=== PATIENT | male | born 1950 | race Caucasian/White ===

== ENCOUNTER 2016-03-20 14:14 | Emergency (ER) | payer OTHER ==
[2016-03-20 14:52] VITALS: BP 155/85; PULSE 96; RESP 16; TEMP 97.7; O2SAT 91
--- NOTE | 2016-03-20 15:35 | DX ---
Left Shoulder, Three Views. History: Pain and swelling after lifting injury. Findings: Moderate degenerative change is seen in the acromioclavicular joint. There is an anterior c urve to the acromion and a subacromial spur. Humeral head is mildly high riding. Subcortical sclerosi s is seen at the greater tuberosity. No evidence for acute fracture or dislocation. Impression: Moderate degenerative change at the acromioclavicular joint. Anterior curve to the acromi on and a subacromial spur. Possible rotator cuff pathology and impingement.
--- NOTE | 2016-03-20 15:42 | UCPHY ---
H & P Patient Type: New Chief Complaint Nursing Narrative: last pm at work lifted heavy object and now since has had lots of pain and bump on left shoulder .CMS intact distal to injury . Time Seen by Provider: 03/20/16 15:18 HPI/ROS: Chief complaint: Left shoulder pain History of present illness: This is a 66-year-old male who presents to the clinic for evaluation of left shoulder pain. Patient states last night while at work he was lifting heavy objects when he developed pain in the left shoulder. The pain has been persistent. He has noticed a bump to the shoulder as well. Pain is worse with movement, better with rest. Denies other associated signs or symptoms including no history of direct trauma to the area. No open wounds. No paresthesias or abnormal coolness to the left arm. No rashes. No fevers. No discomfort in other parts of the body reported. - Medical/Surgical History Other PMH: PCP Stephen Jones/[facility]. Surgery : Ventral hernia Repair. Med : HTN Hypercholesterolemia. FLU Vacc NONE. Tetanus UTD - Family History Significant Family History: No pertinent family hx - Social History Smoking Status: Never smoked - Physical Exam Exam: General: Alert, nontoxic Skin: No lesions to the left shoulder noted. Musculoskeletal: Head is normocephalic, atraumatic. Spine is nontender to palpation along its entire length. There is tenderness diffusely to the left shoulder. There is point tenderness over the AC joint, there is bony deformity in this region. He has good range of motion in all gray left shoulder although it causes discomfort. The rest the left arm is unremarkable, is nontender, he is moving the left elbow, wrist and digits of the hand without difficulty. Vascular: Radial pulses 2+. Neurologic: Sensation intact throughout the left arm. Constitutional: Initial Vital Signs Temperature (C) 36.5 C 03/20/16 14:44 Heart Rate 96 03/20/16 14:44 Respiratory Rate 16 03/20/16 14:44 Blood Pressure 155/85 H 03/20/16 14:44 O2 Sat (%) 91 L 03/20/16 14:44 O2 Delivery Mode Room Air Allergies/Adverse Reactions: No Known Allergies Allergy (Unverified 03/20/16 14:52) Home Medications: Medication Instructions Recorded Cholesterol Med 03/20/16 [facility] 01/26/17 Medical Decision Making - Diagnostics Imaging: X-ray left shoulder shows degenerative changes of the AC joint, anterior curve of the acromion and an subacromial spur, possible rotator cuff pathology. See report for complete details. Procedures: Patient placed in a sling ED Course/Re-evaluation: Patient seen under the supervision of my secondary supervising physician Dr. Santiago Giang. Patient presents to the clinic for left shoulder pain after lifting a heavy object. The arm is neurovascularly intact. X-rays as described above. Patient is placed in a sling for comfort. Home care is discussed. He is asked to follow up with worker's compensation or an orthopedic doctor for continued evaluation and care. Strict return precautions are given. Patient voiced understanding and agreement with plan. Differential Diagnosis: Included but not limited to contusion, sprain or strain, fracture, joint dislocation Departure - Departure Disposition: Home, Routine, Self-Care Clinical Impression: Shoulder sprain Qualifiers: Encounter type: initial encounter Shoulder sprain type: unspecified sprain Laterality: left Qualifier Code: (S43.402A) Unspecified sprain of left shoulder joint, initial encounter Condition: Good Instructions: Shoulder Sprain (ED) Additional Instructions: Follow-up with worker's compensation doctor or orthopedics for recheck Wear sling for the next 2-3 days and then stop using it Use [id number] ibuprofen as directed as needed for pain Ice the injury, 20 minutes on, 3 times a day for the next 3 days If symptoms worsen or new symptoms develop return to this clinic or the closest emergency room for recheck Referrals: NONE *PRIMARY CARE P,. [Primary Care Provider] - As per Instructions Damon Reyes MD [Medical Doctor] - As per Instructions - PQRS PQRS Measurement: N/A
== END 2016-03-20 15:45 | disposition home or self-care (01) ==
LOC: CED 14:14
DX: S43.402A Unspecified sprain of left shoulder joint, initial encounter (principal); X50.0XXA Overexertion from strenuous movement or load, initial encounter; Y92.59 Other trade areas as the place of occurrence of the external cause; Y99.0 Civilian activity done for income or pay
CPT/HCPCS: 73030-PO; G0463-PO